=== PATIENT | female | born 1950 | race Caucasian/White ===

== ENCOUNTER 2020-03-26 17:38 | Emergency (ER) | payer OTHER ==
[~2020-03-26] VITALS: Ht 175.3 cm; Wt 81.7 kg
[2020-03-26 19:08] VITALS: BP 113/50
== END 2020-03-26 19:09 | disposition home or self-care (01) ==
LOC: ER 17:38
DX: M25.531 Pain in right wrist (principal); R42 Dizziness and giddiness; R11.0 Nausea; Z91.040 Latex allergy status; Z88.0 Allergy status to penicillin; Z88.2 Allergy status to sulfonamides; Z88.1 Allergy status to other antibiotic agents; X50.3XXA Overexertion from repetitive movements, initial encounter; Y93.E9 Activity, other interior property and clothing maintenance; Y92.098 Other place in other non-institutional residence as the place of occurrence of the external cause; Y99.8 Other external cause status